=== PATIENT | female | born 1985 | race Caucasian/White ===

== ENCOUNTER → 2018-08-13 13:05 | Outpatient (CLI) | payer OTHER, SELFPAY | DX: Z23 Encounter for immunization (principal) | CPT/HCPCS: 90471; 90686 ==

== ENCOUNTER → 2019-08-26 16:12 | Outpatient (CLI) | payer OTHER, SELFPAY | DX: Z23 Encounter for immunization (principal) | CPT/HCPCS: 90471; 90686 ==

== ENCOUNTER → 2020-11-27 19:12 | Outpatient (CLI) | payer OTHER, SELFPAY ==
[2020-11-27 19:53] LABS: COVID19 -Nasal RAPID Negative (Negative)
== END ==
PROVIDERS: Visit Provider Physician Assistant
DX: Z20.822 Contact with and (suspected) exposure to COVID-19 (principal); J02.9 Acute pharyngitis, unspecified
CPT/HCPCS: 87070; 87635

== ENCOUNTER → 2021-02-23 12:12 | Outpatient (CLI) | payer OTHER, SELFPAY ==
[2021-02-23] MEDS: COVID-19 VACC #1, MRNA(MOD) 100 MCG/0.5 ML VIAL IM (12:21)
== END ==
PROVIDERS: Visit Provider Internal Medicine
DX: Z23 Encounter for immunization (principal)
CPT/HCPCS: 0011A; 91301

== ENCOUNTER → 2021-03-23 12:05 | Outpatient (CLI) | payer OTHER, SELFPAY ==
[2021-03-23] MEDS: COVID-19 VACC #2, MRNA(MOD) 100 MCG/0.5 ML VIAL IM (12:14)
== END ==
PROVIDERS: Visit Provider Internal Medicine
DX: Z23 Encounter for immunization (principal)
CPT/HCPCS: 0012A; 91301

== ENCOUNTER → 2021-05-16 12:11 | Outpatient (CLI) | payer OTHER, SELFPAY ==
--- NOTE | 2021-05-16 12:12 | DI.US.S_ITS ---
PROCEDURE: US PELVIC COMPLETE INDICATIONS: Excessive and frequent menstruation TECHNIQUE: Real-time scanning was performed of the pelvic organs, with image documentation. Additional endovaginal scanning was necessary due to incomplete visualization of the adnexal and endometrial structures by transabdominal scanning. COMPARISON: [facility], US, US PELVIC COMPLETE, 06/01/2019, 14:56. FINDINGS: Uterus: Uterus is normal in size at 4.9 x 5.3 x 5.7 cm, anteverted. The endometrium measures 1.1 cm in combined thickness, containing a small amount of internal fluid. Ovaries: Right ovary measures 2.5 x 2.1 x 3.2 cm and the left measures 2.0 x 2.2 x 1.9 cm. Other: No pathologic free abdominal or pelvic fluid. IMPRESSION: Normal appearing ovaries, no evidence of ovarian torsion. A small amount of fluid is present within the endometrial space but no mass lesion or debris is found. Dictated by: Yadiel Cage M.D. on 05/16/2021 at 16:13 Approved by: Yadiel Cage M.D. on 05/16/2021 at 16:16
== END ==
PROVIDERS: PCP Family Medicine; Referring Provider Family Medicine; Visit Provider Family Medicine
DX: N92.0 Excessive and frequent menstruation with regular cycle (principal)
CPT/HCPCS: 76830; 76856

== ENCOUNTER → 2021-08-21 11:44 | Outpatient (CLI) | payer OTHER, SELFPAY ==
[2021-08-21 14:12] LABS: COVID19 -Nasal RAPID Negative (Negative)
== END ==
PROVIDERS: PCP Family Medicine; Visit Provider Physician Assistant
DX: J02.9 Acute pharyngitis, unspecified (principal); R09.89 Other specified symptoms and signs involving the circulatory and respiratory systems; Z20.822 Contact with and (suspected) exposure to COVID-19
CPT/HCPCS: 87635

== ENCOUNTER → 2024-01-17 09:34 | Outpatient (CLI) | payer OTHER, SELFPAY ==
--- NOTE | 2024-01-17 | DI.MG.S_ITS ---
BILATERAL DIGITAL SCREENING MAMMOGRAM 3D/2D WITH CAD: 01/17/2024 CLINICAL: Routine screening. Baseline exam. No prior exams were available for comparison. Both breasts are heterogeneously dense, which may obscure small masses (category c / 51-75% glandular tissue). Current study was also evaluated with a Computer Aided Detection (CAD) system. There is an oval mass with a circumscribed margin in the right breast upper outer quadrant at posterior depth. No other significant masses, calcifications, or other findings are seen in either breast. IMPRESSION: INCOMPLETE: NEEDS ADDITIONAL IMAGING EVALUATION The oval mass in the right breast is indeterminate. A diagnostic mammogram and ultrasound is recommended. Based on the Tyrer Cuzick model (a risk assessment model) the patient's lifetime risk is 14.9% and her 10 year risk is 1.9%. According to the ACR, ACS, and NCCN guidelines, an annual breast MRI exam along with mammogram is recommended if the patient's lifetime risk is 20% or greater. This exam was interpreted at Station ID: [id number]. NOTE: For mammograms, a report in lay terms will be sent to the patient. Approximately 15% of breast malignancies will not be visualized mammographically. In the management of a palpable breast mass, a negative mammogram must not discourage biopsy of a clinically suspicious lesion. Electronically Signed By: Lynn Delvalle M.D., PH.D eb/:01/19/2024 11:06:34 letter sent: Additional Imaging Needed ACR BI-RADS Category 0: Incomplete 3340F
== END ==
PROVIDERS: PCP Family Medicine; Referring Provider Family Medicine; Visit Provider Family Medicine
DX: Z12.31 Encounter for screening mammogram for malignant neoplasm of breast (principal); R92.333 Mammographic heterogeneous density, bilateral breasts
CPT/HCPCS: 77063; 77067

== ENCOUNTER → 2024-02-19 09:21 | Outpatient (CLI) | payer OTHER, SELFPAY ==
--- NOTE | 2024-02-19 09:22 | DI.US.S_ITS ---
LIMITED ULTRASOUND OF RIGHT BREAST AND AXILLA: 02/19/2024 CLINICAL: Patient returns today to evaluate a focal asymmetry in the right breast. Comparison is made to exams dated: 02/19/2024 mammogram and 01/17/2024 mammogram - [facility]. Color flow and real-time ultrasound of the right breast 9 o'clock, and axilla regions were performed. Dennis scale images of the real-time examination were reviewed. There is a 0.9 cm x 1.5 cm x 2 cm oval mass with a circumscribed margin in the right breast at 9 o'clock middle depth 10 cm from the nipple. No significant abnormalities were seen sonographically in the right axilla. IMPRESSION: SUSPICIOUS OF MALIGNANCY The 0.9 cm x 1.5 cm x 2 cm oval mass in the right breast resembles a fibroadenoma. Overall findings are probably benign. This was discussed with the patient and she opted for tissue sampling for confirmation. This is reasonable. Overall suspicion for malignancy is low. An ultrasound guided biopsy is recommended. No significant abnormalities were seen sonographically in the right axilla. This exam was interpreted at Station ID: [id number]. Electronically Signed By: Chico Dunbar M.D. lc/:02/19/2024 10:27:36 letter sent: Biopsy Required Ultrasound BI-RADS: 4a Low suspicion for malignancy
--- NOTE | 2024-02-19 09:22 | DI.MG.S_ITS ---
UNILATERAL RIGHT DIGITAL DIAGNOSTIC MAMMOGRAM 3D/2D WITH ADDITIONAL VIEWS: 02/19/2024 CLINICAL: Additional evaluation requested from prior study. Comparison is made to exam dated: 01/17/2024 mammogram - [facility]. The right breast is heterogeneously dense, which may obscure small masses (category c / 51-75% glandular tissue). There is a 2.2 cm oval mass with a circumscribed margin in the right breast at 9 o'clock middle depth. No other significant masses or calcifications are seen in the breast. IMPRESSION: INCOMPLETE: NEEDS ADDITIONAL IMAGING EVALUATION The 2.2 cm oval mass in the right breast is indeterminate. An ultrasound is recommended. Based on the Tyrer Cuzick model (a risk assessment model) the patient's lifetime risk is 14.9% and her 10 year risk is 1.9%. According to the ACR, ACS, and NCCN guidelines, an annual breast MRI exam along with mammogram is recommended if the patient's lifetime risk is 20% or greater. This exam was interpreted at Station ID: [id number]. NOTE: For mammograms, a report in lay terms will be sent to the patient. Approximately 15% of breast malignancies will not be visualized mammographically. In the management of a palpable breast mass, a negative mammogram must not discourage biopsy of a clinically suspicious lesion. Electronically Signed By: Chico Dunbar M.D. lc/:02/19/2024 10:24:51 ACR BI-RADS Category 0: Incomplete 3340F
== END ==
PROVIDERS: PCP Family Medicine; Referring Provider Family Medicine; Visit Provider Family Medicine
DX: R92.8 Other abnormal and inconclusive findings on diagnostic imaging of breast (principal); N63.15 Unspecified lump in the right breast, overlapping quadrants; R92.331 Mammographic heterogeneous density, right breast
CPT/HCPCS: 76642; 77065; G0279

== ENCOUNTER → 2024-03-15 | Outpatient (CLI) | payer OTHER, SELFPAY ==
--- NOTE | 2024-03-15 | DI.US.S_ITS ---
ULTRASOUND GUIDED BIOPSY RIGHT BREAST WITH MARKING DEVICE INSERTED AND POST DIGITAL MAMMOGRAPHIC AND ULTRASOUND IMAGIN03/15/2024 CLINICAL: Right breast mass. PATIENT CONSENT: Risks (minor bleeding, infection, vasovagal reaction and repeat procedure), benefits and alternatives were explained to the patient and written informed consent was obtained. Correlation is made to exams dated: 03/15/2024 mammogram, 02/19/2024 ultrasound, 02/19/2024 mammogram, and 01/17/2024 mammogram - [facility]. An ultrasound guided biopsy using real-time ultrasound was performed for the 2.1 cm x 1.6 cm x 0.8 cm circumscribed oval solid mass located in the right breast at 9 o'clock posterior depth 10 cm from the nipple. This was described on the previous mammography and ultrasound reports. The skin was prepped in the usual manner. Local anesthetic was administered to the access site. A skin robert was made in the breast. The abnormality was approached from the lateral aspect. A 14 gauge biopsy needle was placed adjacent to the abnormality under ultrasound guidance. Once the needle was documented to be in the correct location, four cores were obtained using Bard Elevation. The patient received additional local anesthetic during the procedure. A vision clip was inserted into the biopsy cavity. A skin adhesive and a sterile dressing were applied to the access site. Post procedure digital mammographic and ultrasound imaging demonstrates the location device at the targeted area. The specimens were sent to the laboratory for pathological analysis. IMPRESSION: ULTRASOUND GUIDED BIOPSY BENIGN Ultrasound guided biopsy of the 2.1 cm x 1.6 cm x 0.8 cm solid mass in the right breast at 9 o'clock posterior depth 10 cm from the nipple was successful with no apparent post procedure complications. 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 Pathology results are concordant with imaging findings. Return to annual mammogram screening schedule is recommended. This exam was interpreted at Station ID: [id number]. anne Lopez M.D., M.D./saundra:03/25/2024 17:18:11
--- NOTE | 2024-03-15 | PATH_ITS ---
[facility] Accession Number: [id number] No. of containers..01 Tissue . 01 Material submitted: . breast - RIGHT BREAST MASS 9:00 10CMFN . 01 Diagnosis: A. RIGHT BREAST MASS, 9 O'CLOCK, 10 CM FROM THE NIPPLE, BIOPSY: Pseudoangiomatous stromal hyperplasia, florid. Background breast parenchyma with usual ductal hyperplasia, fibroadenomatoid change, columnar cell change/columnar cell hyperplasia, and adenosis. Negative for atypia, carcinoma in situ, and malignancy. . COMMENT: Clinical and radiographic correlation is necessary. [facility] 03/22/2024 1042 Local . 01 Electronically signed: . Alexandra Mercedes MD, Pathologist NPI- [id number] . 01 Gross description: . Received is one formalin-filled container labeled with the patient's name designated right breast mass 9 o'clock 10 cm FN. Sample is received with a plastic filter, part sample in plastic filter, and a small amount of sample outside of filter. The specimen consists of four fragments of yellow-malin to malin cylindrical shaped tissue ranging in size from 1.0 x 0.2 x 0.2 cm to 1.6 x 0.2 x 0.2 cm. All fragments are totally submitted in cassette A1. . Possible collection date and time per requisition 03/15/2024 at 0949 hours. Total fixation time approximately 16 hours. ([id number]) / 03/16/2024 0653 Local . 01 Microscopic: . A panel of immunohistochemical stains is performed on block A, in order to evaluate areas of interest, with appropriately staining external controls, and demonstrates the following pattern: . P63: Completely retained, excluding malignancy. Smooth muscle myosin: Completely retained, excluding malignancy. CK5/6: Mosaic pattern, excluding neoplasia. ER: Mosaic pattern, excluding neoplasia. . Multiple step sections have been examined. . * This test was developed and its performance characteristics determined by [facility]. It has not been cleared or approved by the U.S. Food and Drug Administration. The FDA has determined that such clearance or approval is not necessary. This test is used for clinical purposes. It should not be regarded as investigational or for research. . 01 Pathologist provided ICD-10: R92.8 . 01 CPT . 450994, [id number], T14621 Performed at: 01 [facility] [address] [place] [address] [address], [place], [place] [id number] MD Alex Hernandez MD Phone: [phone]
--- NOTE | 2024-03-15 | DI.MG.S_ITS ---
UNILATERAL RIGHT DIGITAL DIAGNOSTIC MAMMOGRAM 3D/2D POST-EXCISIONAL BIOPSY: 03/15/2024 CLINICAL: Post right breast ultrasound biopsy, clip placment imaging. Comparison is made to exams dated: 02/19/2024 mammogram, 01/17/2024 mammogram, and 02/19/2024 ultrasound - [facility]. The right breast is heterogeneously dense, which may obscure small masses (category c / 51-75% glandular tissue). There is a vision marker clip in the appropriate position in the right breast at 9 o'clock middle depth at the biopsy site. IMPRESSION: POST PROCEDURE MAMMOGRAM FOR MARKER PLACEMENT There was a successful vision marker clip placement in the right breast middle depth. This exam was interpreted at Station ID: [id number]. Electronically Signed By: Andreas Ness M.D. slc/:03/15/2024 10:01:14 ACR BI-RADS Category Post-procedure mammogram for marker placement
== END ==
PROVIDERS: PCP Family Medicine; Referring Provider Family Medicine; Visit Provider Family Medicine
DX: R92.8 Other abnormal and inconclusive findings on diagnostic imaging of breast (principal); N60.21 Fibroadenosis of right breast; R92.331 Mammographic heterogeneous density, right breast; N64.89 Other specified disorders of breast
CPT/HCPCS: 19083; 77065